=== PATIENT | male | born 1990 | race Caucasian/White ===

== ENCOUNTER 2016-09-06 07:53 | Day surgery (SDC) | payer BC ==
[~2016-09-06 07:53] MED LIST: Dextrose 5%-0.45% NaCl 1,000 ML IV SCH; Midazolam 1 MG/ML 2 ML SDV ONE; Sodium Chloride 0.9% 10 ML Syringe FLUSH PRN; fentaNYL 100 MCG/2 ML SDV ONE
[2016-09-06] MEDS ORDERED: fentaNYL 100 MCG/2 ML SDV IV ONE ×2 (08:24→08:25)
[2016-09-06] MEDS ORDERED: Midazolam 1 MG/ML 2 ML SDV IV ONE ×6 (08:25→08:40)
--- NOTE | 2016-09-06 10:25 | OR ---
DATE: 09/06/2016 PROCEDURES: Total colonoscopy, terminal ileoscopy, and multiple pinch biopsies. INSTRUMENT USED: PCF-H180AL Olympus video colonoscope. PREMEDICATIONS: Fentanyl 100 mcg intravenous, Versed 4 mg intravenous. The procedure was done under pulse oximetry, BP recording, and cardiac exercise physiologist. INDICATION: The patient with rectal bleeding and chronic diarrhea, unexplained. Colonoscopic examination is done for detection of any polypoid lesions and removal, biopsies to be obtained for microscopic colitis, endoscopic hemostasis therapy if needed. DESCRIPTION OF PROCEDURE: Initial rectal exam was unremarkable. Rigid anoscopy was normal. The colonoscope was passed with ease up to and beyond the ileocecal junction to visualize normal-appearing terminal ileum. Photographs were taken of the terminal ileum and cecum, multiple pinch biopsies were obtained from the terminal ileum and sent for histopathologic evidence of celiac disease. No bleeding was noted from any of the visualized areas at the commencement of the examination. No stricture. No vascular ectasia. No large isolated ulcerations seen. No evidence of diffuse inflammatory bowel disease in the form of friability, contact bleeding, or ulcerations. No polyp or tumor mass identified. Probing the proximal sides of folds and flexures, using adequate distention and clearing up the stool material, withdrawal of the scope was made. Multiple pinch biopsies were taken from the normal-appearing mucosa of the mid transverse colon, mid descending colon, and rectum, and sent for any histopathologic evidence of microscopic colitis. No bleeding was noted from any of the visualized areas at the completion of examination. IMPRESSION: Normal study. The patient tolerated the procedure well. [facility] /[id number]
[2016-09-06 10:32] VITALS: BP 108/70
== END 2016-09-06 10:40 | disposition home or self-care (01) ==
LOC: DL.ENDO 07:53
PROVIDERS: ATTEND Internal Medicine Gastroenterology
DX: K63.89 Other specified diseases of intestine (principal); K62.5 Hemorrhage of anus and rectum; R19.7 Diarrhea, unspecified; F17.210 Nicotine dependence, cigarettes, uncomplicated; Z98.890 Other specified postprocedural states; Z79.899 Other long term (current) drug therapy; F41.1 Generalized anxiety disorder; Z72.0 Tobacco use
CPT/HCPCS: 45380; J7042; J2250; J3010

== ENCOUNTER 2020-08-08 19:06 | Emergency (ER) | payer BC, MEDICAID, OTHER ==
[2020-08-08] MEDS ORDERED: Sodium Chloride 0.9% 1,000 ML IV ONE (19:21)
[2020-08-08] MEDS ORDERED: Ketorolac 30 MG/ML SDV IVPUSH ONE (19:21)
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
[2020-08-08 19:40] VITALS: BP 126/74; PULSE 106
[2020-08-08 19:57] LABS: ANION GAP 16.3 mEq/L (7-13); CHLORIDE,CL 99 mmol/L (98-107); SODIUM,NA 136 mmol/L (136-145)
[2020-08-08] MEDS ORDERED: cefTRIAXone 1,000 MG in Sodium Chloride 0.9% 50 ML IV ONE (20:11)
--- NOTE | 2020-08-08 20:36 | CT ---
PROCEDURE INFORMATION: Exam: CT Abdomen And Pelvis Without Contrast Exam date and time: 08/08/2020 8:11 PM Age: 30 years old Clinical indication: Other: Flank pain; Additional info: Kidney stone TECHNIQUE: Imaging protocol: Computed tomography of the abdomen and pelvis without contrast. Total images: 387 Radiation optimization: All CT scans at this facility use at least one of these dose optimization techniques: automated exposure control; mA and/or kV adjustment per patient size (includes targeted exams where dose is matched to clinical indication); or iterative reconstruction. COMPARISON: No relevant prior studies available. FINDINGS: Lungs: Visualized lung bases are clear. Heart: Heart size normal. Mediastinal space: The visualized distal esophagus is normal. Liver: Normal contour. No mass lesions. No intrahepatic biliary ductal dilatation. Gallbladder and bile ducts: Gallbladder contents appears slightly heterogeneous and isodense in areas suspicious for gallstones or sludge. No gallbladder wall thickening or surrounding stranding to suggest cholecystitis. Nondilated bile ducts. Pancreas: Normal. No inflammatory changes or ductal dilation. Spleen: Normal. No splenomegaly. Adrenal glands: Normal. No adrenal mass. Kidneys and ureters: No acute abnormalities. No hydronephrosis or hydroureter. No urinary tract stones are identified. Stomach and bowel: Nondilated small bowel. Question slight wall thickening in the terminal ileum without surrounding inflammatory stranding, possible mild enteritis. No evidence of associated bowel obstruction, perforation, or abscess. Question mild colonic wall thickening in the cecum, ascending colon and hepatic flexure as well as in the distal descending colon through the rectum, suspicious for mild colitis. No evidence of perforation or abscess. Appendix: The appendix is normal in caliber and demonstrates no evidence of appendicitis. Intraperitoneal space: No free fluid or air. Vasculature: No acute process. No abdominal aortic aneurysm. Lymph nodes: No adenopathy. Urinary bladder: Unremarkable as visualized. Reproductive: Mildly enlarged prostate. Bones/joints: No acute osseous abnormalities. Soft tissues: Unremarkable. IMPRESSION: 1. No urolithiasis or hydronephrosis. 2. Possible mild colitis and possible mild enteritis in the terminal ileum. No evidence of bowel obstruction, perforation, or abscess. 3. Slightly heterogeneous isodense content in the gallbladder suspicious for sludge or stones. No CT signs of cholecystitis or biliary obstruction.
== END 2020-08-08 21:22 | disposition home or self-care (01) ==
LOC: DL.ED 19:06
DX: K52.9 Noninfective gastroenteritis and colitis, unspecified (principal); M62.830 Muscle spasm of back; J45.909 Unspecified asthma, uncomplicated
CPT/HCPCS: 36415; 74176; 80053; 80305; 81003; 83605; 85025; 87040; 96365; 96375; 99284; J0696; J1885; J7030

== ENCOUNTER 2020-12-05 13:04 | Emergency (ER) | payer MEDICAID ==
[2020-12-05] MEDS ORDERED: Ondansetron 4 MG Tab.DIS PO ONE (13:05)
[2020-12-05 13:38] VITALS: BP 117/80; PULSE 74
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
[2020-12-05] MEDS ORDERED: Sodium Chloride 0.9% 1,000 ML IV ONE (14:15)
[2020-12-05] MEDS ORDERED: Ondansetron 4 MG/2 ML SDV IV ONE ×2 (14:15→15:11)
[2020-12-05] MEDS ORDERED: Sodium Chloride 0.9% 10 ML Syringe FLUSH PRN (14:16)
[2020-12-05] MEDS ORDERED: LORazepam 2 MG/ML SDV IVPUSH ONE ×2 (14:16→15:11)
[2020-12-05 15:00] LABS: ANION GAP 19.7 mEq/L (7-13); CHLORIDE,CL 102 mmol/L (98-107); SODIUM,NA 141 mmol/L (136-145)
[2020-12-05] MEDS ORDERED: Famotidine 20 MG/2 ML SDV IVPUSH ONE (15:11)
[2020-12-05] MEDS ORDERED: Ondansetron 4 MG Tab.DIS ONE (16:24)
== END 2020-12-05 16:26 | disposition home or self-care (01) ==
LOC: DL.ED 13:04
DX: R11.2 Nausea with vomiting, unspecified (principal); F12.90 Cannabis use, unspecified, uncomplicated; J45.909 Unspecified asthma, uncomplicated
CPT/HCPCS: 36415; 80053; 80305-QW; 81001; 82150; 83690; 85025; 96374; 96375; 96376; 99283; 99284-25; A9270-GY; J2060; J2405; J3490; J7030